=== PATIENT | male | born 1995 | race Asian ===

== ENCOUNTER 2017-01-20 19:51 | Emergency (ER) | payer OTHER ==
[~2017-01-20] VITALS: Ht 180.3 cm; Wt 81.8 kg
[~2017-01-20 19:51] MED LIST: PENI-82 PO
[2017-01-20 20:03] VITALS: TEMP 36.9; Ht 180.3 cm; Wt 81.8 kg
[2017-01-20] MEDS ORDERED: OPTIRAY 320 IV PRN (21:00)
[2017-01-20] MEDS ORDERED: AZITTAB PO (21:06)
[2017-01-20] MEDS ORDERED: DEXT1LIQ58 PO (21:06)
[2017-01-20] MEDS ORDERED: PRED20TA PO (21:06)
[2017-01-20 21:29] LABS: BASO % 0.3 %; BASO ABS # 0.02 K/uL (0-0.2); COMPLETE YES; EOS % 0.3 %; HEMATOCRIT 46.2 % (42-52); IG% 0.5 %; LYMPH % 24.4 %; LYMPH ABS # 1.42 K/uL (1.2-3.4); MEAN CELL VOLUME 90.4 fL (80-100); MEAN CORPUSCULAR HEMOGLOBIN 32.3 pg (25-34); MEAN CORPUSCULAR HGB CONC 35.7 g/dl (32-36); MEAN PLATELET VOLUME 9.5 fL (7.4-10.4); MONO % 13.1 %; NEUT % 61.4 %; PLATELET COUNT 184 K/uL (130-400); RED BLOOD COUNT 5.11 M/uL (4.7-6.1); WHITE BLOOD COUNT 5.82 K/uL (4.8-10.8)
[2017-01-20] MEDS ORDERED: ACET325T96 PO (21:33)
--- NOTE | 2017-01-20 21:37 | DIAGNOSTIC IMAGING REPORT ---
CHEST ONE VIEW PORTABLE CLINICAL HISTORY: cough, fever dyspnea COMPARISON STUDY: No previous studies for comparison. FINDINGS: The bones soft tissues and hemidiaphragms are normal. The cardiomediastinal silhouette is normal. The lungs are clear. The pulmonary vasculature is normal. IMPRESSION: Negative chest. Electronically signed by: Kenji Geronimo M.D. 01/20/2017 9:35 PM Dictated Date/Time: 01/20/2017 9:35 PM
[2017-01-20 21:47] LABS: BUN/CREATININE RATIO 10.5 (10-20); CREATININE 1.1 mg/dl (0.60-1.40); POTASSIUM 3.5 mmol/L (3.5-5.1)
[2017-01-20 21:49] LABS: CALCIUM 9.2 mg/dl (8.5-10.1)
[2017-01-20 21:50] LABS: ALB/GLOB RATIO 1.1 (0.9-2)
--- NOTE | 2017-01-20 22:27 | DIAGNOSTIC IMAGING REPORT ---
CT soft tissue neck SOFT TISSUE NECK WITH CLINICAL HISTORY: right neck/mastoid swelling pain. Edema. TECHNIQUE: Transaxial images with multi axial reformatted images. COMPARISON STUDY: None FINDINGS: Distinct hyperemia of the right parotid gland is compared to the left. Increased vascularity with several small reactive end of surrounding nodes. Mild infiltrative changes subcutaneous fat extending to the masseter musculature. No drainable abscess or collection. Mastoid air cells are considered clear. The external auditory canal is patent. IMPRESSION: 1. Findings of moderate right parotid sialoadenitis with mild secondary subcutaneous cellulitis. 2. No evidence for abscess or collection 3. No evidence for airway compromise. Electronically signed by: Kenji Geronimo M.D. 01/20/2017 10:25 PM Dictated Date/Time: 01/20/2017 10:20 PM
[2017-01-20] MEDS ORDERED: AMPICILLIN/SULBACTAM SOD INJ 3,000 MG in SODIUM CHLORIDE 0.9% 100ML 100 ML IV ONE (22:45)
[2017-01-20] MEDS ORDERED: AMOX875T PO (23:18)
--- NOTE | 2017-01-20 23:19 | EMERGENCY ROOM VISIT NOTE ---
History First contact with patient: 20:32 Chief Complaint: FLU LIKE SX Stated Complaint: HEADACHE,FEVER,DIZZY,SWOLLEN LYMPNODE,COUGH History of Present Illness The patient is a 21 year old male who presents to the Emergency Room with complaints of swelling of the right side of the jaw. The patient reports that he has had a cough and sore throat for the past several days. He was seen by [facility] and prescribed a Z-Jared and steroid for his cough. He states that the cough has started to resolve, but he now has swelling of the right side of the jaw. He states there is pain in the jaw as well as a mild headache. He denies any neck pain/stiffness. He rates his discomfort a 4/10. He has been taking his medications as prescribed. He denies any difficulty breathing or difficulty swallowing. He denies any fevers/chills. He reports he has had all childhood vaccinations. Review of Systems A complete 10-point Review of Systems was discussed with the patient, with pertinent positives and negatives listed in the History of Present Illness. All remaining Review of Systems questions can be considered negative unless otherwise specified. Past Medical/Surgical History Medical Problems: (1) No significant medical problems Surgical Problems: (1) No significant past surgical history Family History Tashi-Danlos syndrome Social History Smoking Status: Never Smoker Alcohol Use: occasionally Marital Status: single Housing Status: lives alone Occupation Status: [employer] student Current/Historical Medications Scheduled Amoxicillin & Pot Clavulanate (Augmentin 875-125 mg), 1 TAB PO BID Azithromycin (Zithromax Z-Jared), 1 PKT PO UD Prednisone (Prednisone), 2 TABS PO DAILY Scheduled PRN Acetaminophen Tab (Tylenol), 650 MG PO Q4H PRN for Pain or Fever Dextromethorphan-Phenylephrine (Vicks Dayquil Cold & Flu), 1 DOSE PO DAILY PRN for FLU SYMPYOMS Allergies Coded Allergies: No Known Allergies (Unverified , 03/15/15) Physical Exam Vital Signs Date Time Temp Pulse Resp B/P Pulse Ox O2 Delivery O2 Flow Rate FiO2 01/20/17 23:58 64 16 116/69 99 Room Air 01/20/17 22:29 60 18 117/75 98 Room Air 01/20/17 20:03 36.9 76 18 125/71 97 Room Air Physical Exam VITALS: Vitals are noted on the nurse's note and reviewed by myself. Vital signs stable. GENERAL: This is a 21-year-old male, in no acute distress, nondiaphoretic, well- developed well-nourished. SKIN: The skin was without rashes. EARS: External auditory canals clear, tympanic membranes pearly peterson without erythema or effusion bilaterally. EYES: Pupils equal round and reactive to light and accommodation. NOSE: Patent, turbinates without inflammation or discharge. No sinus tenderness. MOUTH: Mucous membranes moist. Tonsils are not enlarged. Pharynx without erythema or exudate. NECK: There is an area of swelling and tenderness with mild overlying erythema at the angle of the right mandible. Supple without nuchal rigidity. No lymphadenopathy. No meningismus. HEART: Regular rate and rhythm without murmurs gallops or rubs. LUNGS: Clear to auscultation bilaterally without wheezes, rales or rhonchi. No retractions or accessory muscle use. ABDOMEN: Positive bowel sounds x 4. Soft, nontender, without masses or organomegaly. NEURO: Patient was alert and oriented to person place and time. Medical Decision & Procedures ER Provider Diagnostic Interpretation: CHEST ONE VIEW PORTABLE FINDINGS: The bones soft tissues and hemidiaphragms are normal. The cardiomediastinal silhouette is normal. The lungs are clear. The pulmonary vasculature is normal. IMPRESSION: Negative chest. CT soft tissue neck SOFT TISSUE NECK WITH FINDINGS: Distinct hyperemia of the right parotid gland is compared to the left. Increased vascularity with several small reactive end of surrounding nodes. Mild infiltrative changes subcutaneous fat extending to the masseter musculature. No drainable abscess or collection. Mastoid air cells are considered clear. The external auditory canal is patent. IMPRESSION: 1. Findings of moderate right parotid sialoadenitis with mild secondary subcutaneous cellulitis. 2. No evidence for abscess or collection 3. No evidence for airway compromise. Laboratory Results 01/20/17 21:10 Red Blood Count 5.11, Mean Corpuscular Volume 90.4, Mean Corpuscular Hemoglobin 32.3, Mean Corpuscular Hemoglobin Concent 35.7, Mean Platelet Volume 9.5, Neutrophils (%) (Auto) 61.4, Lymphocytes (%) (Auto) 24.4, Monocytes (%) (Auto) 13.1, Eosinophils (%) (Auto) 0.3, Basophils (%) (Auto) 0.3, Neutrophils # (Auto ) 3.57, Lymphocytes # (Auto) 1.42, Monocytes # (Auto) 0.76, Eosinophils # (Auto ) 0.02, Basophils # (Auto) 0.02 01/20/17 21:10 Test 01/20/17 21:10 White Blood Count 5.82 K/uL (4.8-10.8) Red Blood Count 5.11 M/uL (4.7-6.1) Hemoglobin 16.5 g/dL (14.0-18.0) Hematocrit 46.2 % (42-52) Mean Corpuscular Volume 90.4 fL (80-100) Mean Corpuscular Hemoglobin 32.3 pg (25-34) Mean Corpuscular Hemoglobin Concent 35.7 g/dl (32-36) Platelet Count 184 K/uL (130-400) Mean Platelet Volume 9.5 fL (7.4-10.4) Neutrophils (%) (Auto) 61.4 % Lymphocytes (%) (Auto) 24.4 % Monocytes (%) (Auto) 13.1 % Eosinophils (%) (Auto) 0.3 % Basophils (%) (Auto) 0.3 % Neutrophils # (Auto) 3.57 K/uL (1.4-6.5) Lymphocytes # (Auto) 1.42 K/uL (1.2-3.4) Monocytes # (Auto) 0.76 K/uL (0.11-0.59) Eosinophils # (Auto) 0.02 K/uL (0-0.5) Basophils # (Auto) 0.02 K/uL (0-0.2) RDW Standard Deviation 41.0 fL (36.4-46.3) RDW Coefficient of Variation 12.4 % (11.5-14.5) Immature Granulocyte % (Auto) 0.5 % Immature Granulocyte # (Auto) 0.03 K/uL (0.00-0.02) Anion Gap 8.0 mmol/L (3-11) Est Creatinine Clear Calc Drug Dose 112.1 ml/min Estimated GFR () 109.9 Estimated GFR (Non- 94.8 BUN/Creatinine Ratio 10.5 (10-20) Calcium Level 9.2 mg/dl (8.5-10.1) Total Bilirubin 0.4 mg/dl (0.2-1) Aspartate Amino Transf (AST/SGOT) 26 U/L (15-37) Alanine Aminotransferase (ALT/SGPT) 32 U/L (12-78) Alkaline Phosphatase 67 U/L (45-117) Total Protein 7.7 gm/dl (6.4-8.2) Albumin 4.1 gm/dl (3.4-5.0) Globulin 3.6 gm/dl (2.5-4.0) Albumin/Globulin Ratio 1.1 (0.9-2) Monoscreen NEG (NEG) Influenza Type A Antigen Neg for Influ A (NEG) Influenza Type B Antigen Neg for Influ B (NEG) Medications Administered Medications (Trade) Dose Ordered Sig/Talon Route Start Time Stop Time Status Last Admin Dose Admin Ampicillin Sodium/ Sulbactam Sodium/ Sodium Chloride (Unasyn Inj/Nss 100ml) 108 ml @ 200 mls/hr ONE ONCE IV 01/20/17 22:45 01/20/17 23:17 DC 01/20/17 22:45 200 MLS/HR ED Course The patient was evaluated as above. Labs were drawn and IV access was obtained. Patient declined analgesics. Chest x-ray and CT of the neck were performed and read by radiology as above. Patient was reevaluated and findings were discussed. He was given one dose of Unasyn. Discharge instructions were reviewed with the patient. The patient verbalized understanding of my assessment and treatment plan and was discharged home in good condition. Medical Decision Differential diagnosis includes sialoadenitis, mumps, strep pharyngitis, mastoiditis, influenza, among others.. The patient is a 21-year-old male who presents today complaining of right-sided neck/jaw swelling and pain. Labs revealed no leukocytosis, anemia or concerning electrolyte abnormalities. Strep testing, mono testing and influenza were negative. The patient had swelling suggestive of parotid sialoadenitis versus early mastoiditis. CT scan of the neck was performed and showed evidence of a parotid sialoadenitis. While I believe this is likely bacterial, mumps cannot be ruled out. Mumps testing was sent and the patient was informed about isolation precautions. He will need to follow-up with [facility] to be able to return to class and regular activities. He was given one dose of Unasyn and will be placed on Augmentin at home. He was instructed to follow-up with worsening symptoms. The patient is afebrile, has no airway compromise and no evidence of meningitis. The patient's case was reviewed with Dr. Harley, ED attending physician, who agreed with my assessment and treatment plan. Based on the patient's presentation and work up, I feel the patient is stable for outpatient treatment. The patient was educated to the emergency department for any worsening of their current condition or new/concerning symptoms. They will follow up with S. Impression Primary Impression: Sialoadenitis Departure Information Dispostion Home / Self-Care Condition GOOD Prescriptions Amoxicillin & Pot Clavulanate (Augmentin 875-125 mg) 1 Tab Tab 1 TAB PO BID for 10 Days, #20 TAB Prov: Amada Encarnacion ., AZEEM 01/20/17 Referrals [facility] (PCP) Patient Instructions My [facility] Additional Instructions You were prescribed Augmentin to be taken twice daily as prescribed. This is an antibiotic. All antibiotics have the potential to cause diarrhea. Stop this medication and contact a medical provider if you were to develop any significant adverse side effects including: wheezing, shortness of breath, passing out, vomiting, or a diffuse rash. Always take antibiotics as directed and COMPLETE the ENTIRE course regardless of the improvement of your symptoms. For pain control, you can use the following [id number] medicines (if >12 yo): - Regular strength (325mg/tab) Tylenol (acetaminophen) 2 tabs every 4-6 hours as needed. Do not exceed 12 tablets in a 24 hour period. Avoid taking more than 4 grams (4000 mg) of Tylenol per day. This includes any other sources of acetaminophen you may take on a regular basis. - Regular strength (200 mg/tab) Advil (ibuprofen) 1-2 tabs every 4-6 hours as needed. Do not exceed a dose of 3200 mg per day. Follow-up with [facility] services on Wednesday. You should remain in isolation until cleared by [facility] services to return to normal activities. Return to the emergency department with worsening swelling, difficulty breathing , high fevers or any other new/concerning symptoms.
[2017-01-20 23:58] VITALS: BP 116/69; PULSE 64; O2SAT 99
== END 2017-01-21 00:20 | disposition home or self-care (01) ==
LOC: C.EDB 19:53 → C.EDA 01-21 00:20
DX: K11.20 Sialoadenitis, unspecified (principal)